=== PATIENT | female | born 1965 | race Caucasian/White ===

== ENCOUNTER 2017-06-17 00:08 | Emergency (ER) | payer MEDICARE ==
[2017-06-17] MEDS ORDERED: Norflex 60 MG/2 ML IM ONE (00:32)
[2017-06-17] MEDS ORDERED: TORAdol 30 mg Injection IM ONE (00:33)
--- NOTE | 2017-06-17 00:40 | ERPHSYRPT ---
- History of Present Illness Time Seen by Provider: 06/17/17 00:25 Source: patient Exam Limitations: clinical condition Patient Subjective Stated Complaint: pt states she woke up with increased back pain today radiating down both legs, states at this time pain radiates to lt leg only. Triage Nursing Assessment: pt alert and oriented, answers qeustions approp. pt arrive per ambulance, transfer to stretcher with lifting assist of 4. skin pink warm and dry. respirations nonlabored with lungs cta. pt moves bilat lower ext in bed. reports increased pain with movement. Physician History: PATIENT WITH A HISTORY OF CHRONIC LOW BACK PAIN WITH SCIATICA FOR 1 YEAR. DENIES TRAUMA, INJURY OR LIFTING. HAS CHIROPRACTER ADJUSTMENTS OVER MONTH. EVALUATED AT [facility], TREATED WITH MORPHINE, DISCHARGED HOME WITH [place] AND HAS PERSISTENT PAIN. DENIES LOSS OF BLADDER OR BOWEL FUNCTION. DENIES LOWER EXTREMITY WEAKNESS. Timing/Duration: day(s) Method of Injury: other (DENIES INJURY) Back Pain Location: lumbar spine Back Pain Radiation: lower legs Severity of Pain-Max: severe Severity of Pain-Current: severe Modifying Factors: Improves With: immobilization, movement Associated Symptoms: muscle spasms Previous symptoms: same symptoms as today Allergies/Adverse Reactions: atorvastatin [From Lipitor] Allergy (Verified 06/17/17 00:38) iodine Allergy (Verified 06/17/17 00:38) Rash antidepressants Adverse Reaction (Uncoded 06/17/17 00:38) Home Medications: Dexlansoprazole [Dexilant] 60 mg PO DAILY 06/17/17 [History] Metoprolol Succinate 50 mg [Toprol Xl 50 MG] 50 mg PO DAILY 06/17/17 [ History] Potassium Chloride 10 Meq Tab* [Klor Con 10 MEQ] 10 meq PO DAILY 06/17/17 [ History] Pravastatin Sodium 80 mg PO DAILY 06/17/17 [History] Verapamil HCl [Calan Sr] 180 mg PO DAILY 06/17/17 [History] Hx Tetanus, Diphtheria Vaccination/Date Given: No (unknown) Hx Influenza Vaccination/Date Given: No Hx Pneumococcal Vaccination/Date Given: No Immunizations Up to Date: No - Review of Systems Constitutional: No Fever, No Chills Eyes: No Symptoms Ears, Nose, & Throat: No Symptoms Respiratory: No Cough, No Dyspnea Cardiac: No Chest Pain, No Edema, No Syncope Abdominal/Gastrointestinal: No Abdominal Pain, No Nausea, No Vomiting, No Diarrhea Genitourinary Symptoms: No Dysuria Musculoskeletal: Back Pain, No Neck Pain Skin: No Rash Neurological: Other (radiation pain down legs,), No Dizziness, No Focal Weakness , No Sensory Changes Psychological: No Symptoms Endocrine: No Symptoms All Other Systems: Reviewed and Negative - Past Medical History Cardiac History: Coronary Artery Disease, High Cholesterol, Hypertension Musculoskeletal History: Degenerative Disk Disease, Fibromyalgia GI Medical History: Irritable Bowel Psycho-Social History: Depression - Past Surgical History Past Surgical History: Yes Musculoskeletal: Orthopedic Surgery Female Surgical History: Hysterectomy Other Surgical History: bilat carpal tunnel, lt shoulder, neck fusion - Social History Smoking Status: Current some day smoker How long have you smoked: 35 Exposure to second hand smoke: No Drug Use: none Patient Lives Alone: Yes - Female History Hx Last Menstrual Period: hyster - Nursing Vital Signs Nursing Vital Signs: Initial Vital Signs Temperature 97.9 F 06/17/17 00:09 Pulse Rate 72 06/17/17 00:09 Respiratory Rate 18 06/17/17 00:09 Blood Pressure 127/91 06/17/17 00:09 O2 Sat by Pulse Oximetry 96 06/17/17 00:09 Pain Scale Pain Intensity [Lower Back] 5 Pain Intensity 3 - Physical Exam General Appearance: mild distress Eye Exam: PERRL/EOMI, eyes nml inspection Neck Exam: normal inspection, non-tender, supple, full range of motion, No meningismus, No midline tenderness Respiratory Exam: normal breath sounds, lungs clear, No respiratory distress Cardiovascular Exam: regular rate/rhythm Gastrointestinal Exam: soft, normal bowel sounds Back Exam: decreased range of motion Extremity Exam: normal inspection Peripheral Pulses: carotid (R): 2+, carotid (L): 2+, femoral (R): 2+, femoral (L ): 2+, dorsalis-pedis (R): 2+, dorsalis-pedis (L): 2+ Neurologic Exam: alert, oriented x 3 Skin Exam: normal color SpO2 Interpretation: normal SpO2: 96 Oxygen Delivery: Room Air - CT Exams Lumbar Spine CT Interpretation: Tele-radiologist Report (NO ACUTE FRACTURE, SEVERE DISC SPACE NARROWING AT L5-S1, L1 -L2, L2-L3 BORDERLINE CENTRAL CANAL STENOSIS, WITHOUT SIGNIFICANT FORAMINAL STENOSIS, L3-L4 BORDERLINE CENTRAL CANAL STENOSIS WITH MILD RIGHT FORAMINAL STENOSIS) Ordered Tests: Active Orders 24 hr Category Date Time Status LUMBAR SPINE W/O [CT] Stat Exams 06/17/17 00:35 Ordered UA W/RFX UR CULTURE Stat Lab 06/17/17 00:34 Ordered Medication Summary Discontinued Medications Generic Name Dose Route Start Last Admin Trade Name Freq PRN Reason Stop Dose Admin Ketorolac Tromethamine 60 mg 06/17/17 00:33 06/17/17 00:52 Toradol 30 Mg Injection IM 06/17/17 00:34 60 mg STAT ONE Administration Ketorolac Tromethamine Confirm 06/17/17 00:46 Toradol 30 Mg Injection Administered 06/17/17 00:47 Dose 60 mg .ROUTE .STK-MED ONE Orphenadrine Citrate 60 mg 06/17/17 00:32 06/17/17 00:52 Norflex 60 Mg/2 Ml IM 06/17/17 00:33 60 mg STAT ONE Administration Orphenadrine Citrate Confirm 06/17/17 00:46 Norflex 60 Mg/2 Ml Administered 06/17/17 00:47 Dose 60 mg .ROUTE .STK-MED ONE - Progress Progress: pain not gone completely Progress Note: 06/17/17 02:22 PATIENT GIVEN NORFLEX 60MG/ TORADOL 60MG IM Counseled pt/family regarding: lab results, diagnosis, need for follow-up - Departure Time of Disposition: 02:55 Departure Disposition: Home Clinical Impression: Chronic low back pain with bilateral sciatica Condition: Stable Critical Care Time: No Referrals: ALLAN PERSAUD [Primary Care Provider] - Additional Instructions: CONTINUE NORCO FOR PAIN DIRECTED. NORFLEX 100MG TWICE DAILY FOR MUSCLE SPASMS NEEDED. CONSULT YOUR PRIMARY CARE PROVIDER FOR EVALUATION, REFERRAL TO PAIN CLINIC, AND PHYSICAL THERAPY. RETURN TO EMERGENCY FOR INCREASING PAIN. Prescriptions: Orphenadrine Citrate 100 mg [Norflex 100 MG Tablet] 100 mg PO BID PRN #14 tab PRN Reason: Muscle Spasms
[2017-06-17] MEDS ORDERED: Norflex 60 MG/2 ML ONE (00:46)
[2017-06-17] MEDS ORDERED: TORAdol 30 mg Injection ONE (00:46)
[2017-06-17 01:34] LABS: ADD URINE CULTURE? YES (NO); Bacteria MODERATE /HPF (NEGATIVE); Bilirubin NEGATIVE (NEGATIVE); Blood 50 Ery/ul (0-5); COMPLETE URINE MICROSCOPIC? YES; Collection Type VOID; Epithelial Cells MODERATE /HPF (FEW); Glucose NEGATIVE (NEGATIVE); Leukocyte Esterase TRACE (NEGATIVE); Mucus SLIGHT /HPF (NEGATIVE)
[2017-06-17 01:47] VITALS: O2SAT 96
[2017-06-17 02:30] VITALS: BP 126/79; PULSE 74
--- NOTE | 2017-06-17 09:21 | XRAY ---
Indication: Chronic left low back pain. Multiple contiguous axial images obtained through the lumbar spine. Sagittal and coronal reformatted images obtained. Comparison: None. There is a lumbar radiograph dated August 02, 2010. Axial images negative for acute fracture, suspicious bony lesions, or spinal canal stenosis. Mild L5-S1 broad-based disc osteophyte complex produces bilateral foraminal narrowing. Lesser broad-based disc bulge seen at the L3-L5 levels also with bilateral foraminal narrowing. No large disc herniation. Facets are symmetric with mild L5-S1 degenerative facet arthropathy. Sagittal and coronal reformatted images demonstrates normal lumbar alignment. L5-S1 disc space loss. No compression fracture or subluxation. Visualized noncontrasted soft tissues demonstrates minimal aortoiliac calcifications. Impression: 1. Lower lumbar degenerative disc disease greatest at the L5-S1 level. Appearance is grossly similar to the previous lumbar radiograph. Outpatient MRI may yield further information if clinically warranted. 2. No acute findings. Comment: Preliminary interpretation was made by [facility]. No critical discrepancy. CT DI 121.37
== END 2017-06-17 02:35 | disposition home or self-care (01) ==
LOC: ED 00:08
DX: M54.42 Lumbago with sciatica, left side (principal); M54.41 Lumbago with sciatica, right side; G89.29 Other chronic pain; Z79.899 Other long term (current) drug therapy
CPT/HCPCS: 72131; 81000; 87086; 96372; 99283; 99284; J1885; J2360

== ENCOUNTER 2018-10-25 01:57 | Emergency (ER) | payer MEDICARE ==
[2018-10-25] MEDS ORDERED: TORAdol 30 mg Injection IM ONE (02:23)
--- NOTE | 2018-10-25 02:23 | ERPHSYRPT ---
- History of Present Illness Time Seen by Provider: 10/25/18 02:18 Source: patient Exam Limitations: clinical condition Patient Subjective Stated Complaint: pt states she woke up saturday morning with lower back pain and has increased since. Triage Nursing Assessment: pt alert and oriented, answers questions approp. respirations nonlabored with lungs cta. pt ambualtory with steady gait noted. bilat lower ext sterngth equal and wnl. Physician History: PATIENT WITH A HISTORY OF CHRONIC LOW BACK PAIN COMPLAINS ONSET OF LOW BACK PAIN X 2 DAYS, DENIES.HISTORY OF TRAUMA, INJURY OR HEAVY LIFTING. DENIES LOSS OF BOWEL OR BLADDER. Timing/Duration: day(s) Method of Injury: unknown Quality: sharp Back Pain Location: lumbar spine Severity of Pain-Max: moderate Severity of Pain-Current: moderate Modifying Factors: Improves With: movement Associated Symptoms: denies symptoms Previous symptoms: same symptoms as today Allergies/Adverse Reactions: atorvastatin [From Lipitor] Allergy (Verified 10/25/18 02:09) iodine Allergy (Verified 10/25/18 02:09) Rash antidepressants Adverse Reaction (Uncoded 10/25/18 02:09) Home Medications: Dexlansoprazole [Dexilant] 60 mg PO DAILY 06/17/17 [History] Metoprolol Succinate 50 mg [Toprol Xl 50 MG] 50 mg PO DAILY 06/17/17 [ History] Potassium Chloride 10 Meq Tab* [Klor Con 10 MEQ] 10 meq PO DAILY 06/17/17 [ History] Pravastatin Sodium 80 mg PO DAILY 06/17/17 [History] Verapamil HCl [Calan Sr] 180 mg PO DAILY 06/17/17 [History] Isosorbide Mononitrate 30 mg [Imdur 30 MG] 30 mg PO DAILY 10/25/18 [History ] Hx Tetanus, Diphtheria Vaccination/Date Given: No (unknown) Hx Influenza Vaccination/Date Given: No Hx Pneumococcal Vaccination/Date Given: No Immunizations Up to Date: No - Review of Systems Constitutional: No Fever, No Chills Eyes: No Symptoms Ears, Nose, & Throat: No Symptoms Respiratory: No Symptoms, No Cough, No Dyspnea Cardiac: No Symptoms, No Chest Pain, No Edema, No Syncope Abdominal/Gastrointestinal: No Abdominal Pain, No Nausea, No Vomiting, No Diarrhea Genitourinary Symptoms: No Symptoms, No Dysuria Musculoskeletal: Back Pain, No Neck Pain Skin: No Symptoms, No Rash Neurological: No Dizziness, No Focal Weakness, No Sensory Changes Psychological: No Symptoms Endocrine: No Symptoms All Other Systems: Reviewed and Negative - Past Medical History Cardiac History: Coronary Artery Disease, High Cholesterol, Hypertension Musculoskeletal History: Degenerative Disk Disease, Fibromyalgia GI Medical History: Irritable Bowel Psycho-Social History: Depression - Past Surgical History Past Surgical History: Yes Musculoskeletal: Orthopedic Surgery Female Surgical History: Hysterectomy Other Surgical History: bilat carpal tunnel, lt shoulder, neck fusion - Social History Smoking Status: Current some day smoker How long have you smoked: 37 Exposure to second hand smoke: No Drug Use: none Patient Lives Alone: Yes - Nursing Vital Signs Nursing Vital Signs: Initial Vital Signs Pulse Rate 53 L 10/25/18 03:20 Respiratory Rate 16 10/25/18 03:20 Blood Pressure 155/75 10/25/18 03:20 O2 Sat by Pulse Oximetry 100 10/25/18 03:20 Pain Scale Pain Intensity [Lower Back] 8 Pain Intensity 5 - Physical Exam General Appearance: mild distress, alert Eye Exam: PERRL/EOMI, eyes nml inspection Neck Exam: normal inspection, non-tender, supple, full range of motion, No meningismus, No midline tenderness Respiratory Exam: normal breath sounds, lungs clear, No respiratory distress Cardiovascular Exam: regular rate/rhythm, normal heart sounds Gastrointestinal Exam: soft, normal bowel sounds, No tenderness, No mass Back Exam: normal inspection, vertebral tenderness (LUMBAR SPINAL AND PARASPINAL TENDERNESS L1-L5, NO CVA TENDERNESS, NO SACROILIAC JOINT TENDERNESS) , decreased range of motion Extremity Exam: normal inspection, normal range of motion, No calf tenderness, No pedal edema Peripheral Pulses: carotid (R): 2+, carotid (L): 2+, femoral (R): 2+, femoral (L ): 2+, dorsalis-pedis (R): 2+, dorsalis-pedis (L): 2+ Neurologic Exam: alert, oriented x 3, cooperative, 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 tested, normal mood/affect, nml station & gait, sensation nml, No motor deficits Skin Exam: normal color, warm, dry, No rash SpO2 Interpretation: normal SpO2: 98 Ordered Tests: Active Orders 24 hr Category Date Time Status UA W/RFX UR CULTURE Stat Lab 10/25/18 03:04 Completed Urine Triage Profile Stat Lab 10/25/18 03:04 Received Medication Summary Discontinued Medications Generic Name Dose Route Start Last Admin Trade Name Monica PRN Reason Stop Dose Admin Ketorolac Tromethamine 60 mg 10/25/18 02:23 10/25/18 02:38 Toradol 30 Mg Injection IM 10/25/18 02:24 60 mg STAT ONE Administration Ketorolac Tromethamine Confirm 10/25/18 02:30 Toradol 30 Mg Injection Administered 10/25/18 02:31 Dose 60 mg .ROUTE .STK-MED ONE Orphenadrine Citrate 60 mg 10/25/18 02:24 10/25/18 02:38 Norflex 60 Mg/2 Ml IM 10/25/18 02:25 60 mg STAT ONE Administration Orphenadrine Citrate Confirm 10/25/18 02:31 Norflex 60 Mg/2 Ml Administered 10/25/18 02:32 Dose 60 mg .ROUTE .STK-MED ONE Trimethoprim/Sulfamethoxazole 1 tab 10/25/18 03:21 10/25/18 03:23 Bactrim Ds Tablet PO 10/25/18 03:22 1 tab STAT STA Administration Trimethoprim/Sulfamethoxazole Confirm 10/25/18 03:23 Bactrim Ds Tablet Administered 10/25/18 03:24 Dose 1 tab PO .STK-MED ONE Lab/Rad Data: Laboratory Results 10/25/18 10/25/18 Range/Units 03:04 03:04 Urine Color YELLOW (YELLOW) Urine Appearance SLIGHTLY CLOUDY (CLEAR) Urine pH 5.0 (5-6) Ur Specific Benton 1.021 (1.005-1.025) Urine Protein NEGATIVE (Negative) Urine Ketones NEGATIVE (NEGATIVE) Urine Blood NEGATIVE (0-5) Edvin/ul Urine Nitrite NEGATIVE (NEGATIVE) Urine Bilirubin NEGATIVE (NEGATIVE) Urine Urobilinogen 2 (0-1) mg/dL Ur Leukocyte Esterase NEGATIVE (NEGATIVE) Urine WBC (Auto) 6-10 (0-5) /HPF Urine RBC (Auto) 3-5 (0-2) /HPF U Hyaline Cast (Auto) 0-2 (0-2) /LPF U Epithel Cells (Auto) RARE (FEW) /HPF Urine Bacteria (Auto) RARE (NEGATIVE) /HPF Unidentified Crystals 2-5 (NEGATIVE) /HPF Other Casts (Auto) NEGATIVE (NEGATIVE) /LPF Urine Mucus (Auto) SLIGHT (NEGATIVE) /HPF Urine Culture Reflexed NO (NO) Urine Glucose NEGATIVE (NEGATIVE) mg/dL Urine Opiates Level NEGATIVE (NEGATIVE) Ur Methadone NEGATIVE (NEGATIVE) Urine Barbiturates NEGATIVE (NEGATIVE) Ur Phencyclidine (PCP) NEGATIVE (NEGATIVE) Urine Amphetamine NEGATIVE (NEGATIVE) U Benzodiazepine Level NEGATIVE (NEGATIVE) Urine Cocaine NEGATIVE (NEGATIVE) Urine Marijuana (THC) POSITIVE (NEGATIVE) - Progress Progress: improved, pain not gone completely Progress Note: 10/25/18 03:18, ADMINISTERED TORADOL 60MG/NORFLEX 60MG IM, UA CONSISTENT WITH WBC 6-10, GIVEN BACTRIM DS ORALLY Counseled pt/family regarding: lab results, diagnosis - Departure Departure Disposition: Home Clinical Impression: CHRONIC LOW BACK PAIN, URINARY TRACT INFECTION Condition: Stable Critical Care Time: No Referrals: DIANNA MARIN [NON-STAFF PHY W/O PRIVILEGES] - Instructions: Low Back Pain (DC) Additional Instructions: FOLLOWUP WITH YOUR PRIMARY CARE PROVIDER FOR EVALUATION, TREATMENT, PHYSICAL THERAPY REFERRAL. ULTRAM 50MG EVERY 6 HOURS NEEDED FOR PAIN. NORFLEX 100MG TWICE DAILY FOR MUSCLE SPASM. Prescriptions: Tramadol HCl 50 mg [Ultram 50 mg] 50 mg PO Q6H PRN PRN #6 tablet PRN Reason: Pain Orphenadrine Citrate 100 mg [Norflex 100 MG Tablet] 100 mg PO BID #10 tab
[2018-10-25] MEDS ORDERED: Norflex 60 MG/2 ML IM ONE (02:24)
[2018-10-25] MEDS ORDERED: TORAdol 30 mg Injection ONE (02:30)
[2018-10-25 02:31] VITALS: O2SAT 98
[2018-10-25] MEDS ORDERED: Norflex 60 MG/2 ML ONE (02:31)
[2018-10-25 03:11] LABS: Appearance SLIGHTLY CLOUDY (CLEAR); Bacteria RARE /HPF (NEGATIVE); Bilirubin NEGATIVE (NEGATIVE); Blood NEGATIVE Ery/ul (0-5); Epithelial Cells RARE /HPF (FEW); Glucose NEGATIVE (NEGATIVE); Hyaline Casts 0-2 /LPF (0-2); Ketones NEGATIVE (NEGATIVE); Leukocyte Esterase NEGATIVE (NEGATIVE); Mucus SLIGHT /HPF (NEGATIVE); Nitrite NEGATIVE (NEGATIVE); Protein,Urine Dip NEGATIVE (Negative); Specific Gravity 1.021 (1.005-1.025); Urobilinogen 2 mg/dL (0-1)
[2018-10-25] MEDS ORDERED: BACTRIM DS TABLET PO STA (03:21)
[2018-10-25 03:23] VITALS: BP 155/75; PULSE 53
[2018-10-25] MEDS ORDERED: BACTRIM DS TABLET PO ONE (03:23)
[2018-10-25 03:24] LABS: Amphetamine,Urine NEGATIVE (NEGATIVE); Barbiturate,Urine NEGATIVE (NEGATIVE); Benzodiazepine,Urine NEGATIVE (NEGATIVE); Cocaine,Urine NEGATIVE (NEGATIVE); Methadone,Urine NEGATIVE (NEGATIVE); Opiate,Urine NEGATIVE (NEGATIVE); PCP,Urine NEGATIVE (NEGATIVE); THC,Urine POSITIVE (NEGATIVE)
== END 2018-10-25 03:39 | disposition home or self-care (01) ==
LOC: ED 01:57
DX: M54.5 Low back pain (principal); N39.0 Urinary tract infection, site not specified; G89.29 Other chronic pain; F45.42 Pain disorder with related psychological factors; I10 Essential (primary) hypertension; F32.9 Major depressive disorder, single episode, unspecified; E78.00 Pure hypercholesterolemia, unspecified; M79.7 Fibromyalgia; I25.10 Atherosclerotic heart disease of native coronary artery without angina pectoris; Z79.899 Other long term (current) drug therapy
CPT/HCPCS: 80307; 81001; 96372; 99284; J1885; J2360; A9270-GY